=== PATIENT | female | born 1955 | race Caucasian/White ===

== ENCOUNTER 2022-09-04 08:30 | Outpatient (CLI) | payer MEDICARE, BC, SELFPAY ==
[2022-09-04 13:41] VITALS: BMI 44.1
== END 2022-09-04 08:31 | disposition home or self-care (01) ==
LOC: NUTRITION 08:31
PROVIDERS: PCP Family Medicine; Visit Provider Dietitian, Registered
DX: E66.9 Obesity, unspecified (principal); Z71.3 Dietary counseling and surveillance
CPT/HCPCS: 99211

== ENCOUNTER 2022-09-18 08:57 | Outpatient (CLI) | payer MEDICARE, BC, SELFPAY ==
[2022-09-18 10:13] VITALS: BMI 43.7
== END 2022-09-18 08:58 | disposition home or self-care (01) ==
PROVIDERS: PCP Family Medicine; Visit Provider Dietitian, Registered
DX: E66.9 Obesity, unspecified (principal); Z71.3 Dietary counseling and surveillance
CPT/HCPCS: 99211

== ENCOUNTER 2022-10-05 08:26 | Outpatient (CLI) | payer MEDICARE, BC, SELFPAY ==
[2022-10-05 11:08] VITALS: BMI 43.1
== END 2022-10-05 08:27 | disposition home or self-care (01) ==
LOC: NUTRITION 08:28
PROVIDERS: PCP Family Medicine; Visit Provider Dietitian, Registered
DX: E66.9 Obesity, unspecified (principal); Z71.3 Dietary counseling and surveillance
CPT/HCPCS: 99211

== ENCOUNTER 2022-11-13 08:51 | Outpatient (CLI) | payer MEDICARE, BC, SELFPAY ==
[2022-11-13 11:25] VITALS: BMI 42.3
== END 2022-11-13 08:52 | disposition home or self-care (01) ==
LOC: NUTRITION 08:51
PROVIDERS: PCP Family Medicine; Visit Provider Dietitian, Registered
DX: E66.9 Obesity, unspecified (principal); Z71.3 Dietary counseling and surveillance
CPT/HCPCS: 99211

== ENCOUNTER 2022-12-11 09:28 | Outpatient (CLI) | payer MEDICARE, BC, SELFPAY ==
[2022-12-11 10:32] VITALS: BMI 42.6
== END 2022-12-11 09:29 | disposition home or self-care (01) ==
LOC: NUTRITION 09:30
PROVIDERS: PCP Family Medicine; Visit Provider Family Medicine
DX: E66.01 Morbid (severe) obesity due to excess calories (principal); Z71.3 Dietary counseling and surveillance
CPT/HCPCS: 99211

== ENCOUNTER 2023-01-17 09:25 | Outpatient (CLI) | payer MEDICARE, BC, SELFPAY ==
[2023-01-17 10:13] VITALS: BMI 43.4
== END 2023-01-17 09:26 | disposition home or self-care (01) ==
PROVIDERS: PCP Family Medicine; Visit Provider Dietitian, Registered
DX: E66.01 Morbid (severe) obesity due to excess calories (principal); Z71.3 Dietary counseling and surveillance
CPT/HCPCS: 99211

== ENCOUNTER 2023-01-31 09:27 | Outpatient (CLI) | payer MEDICARE, BC, SELFPAY ==
[2023-01-31 11:09] VITALS: BMI 43.0
== END 2023-01-31 09:28 | disposition home or self-care (01) ==
LOC: NUTRITION 09:27
PROVIDERS: PCP Family Medicine; Visit Provider Dietitian, Registered
DX: E66.01 Morbid (severe) obesity due to excess calories (principal); Z71.3 Dietary counseling and surveillance
CPT/HCPCS: 99211

== ENCOUNTER 2023-02-19 09:31 | Outpatient (CLI) | payer MEDICARE, BC, SELFPAY ==
[2023-02-19 10:46] VITALS: BMI 42.8
== END 2023-02-19 09:32 | disposition home or self-care (01) ==
LOC: NUTRITION 09:33
PROVIDERS: PCP Family Medicine; Visit Provider Dietitian, Registered
DX: E66.9 Obesity, unspecified (principal); Z71.3 Dietary counseling and surveillance
CPT/HCPCS: 99211

== ENCOUNTER 2023-03-05 09:26 | Outpatient (CLI) | payer MEDICARE, BC, SELFPAY ==
[2023-03-05 10:07] VITALS: BMI 42.5
== END 2023-03-05 09:27 | disposition home or self-care (01) ==
LOC: NUTRITION 09:26
PROVIDERS: PCP Family Medicine; Visit Provider Dietitian, Registered
DX: E66.01 Morbid (severe) obesity due to excess calories (principal); Z71.3 Dietary counseling and surveillance
CPT/HCPCS: 99211

== ENCOUNTER 2023-04-02 09:23 | Outpatient (CLI) | payer MEDICARE, BC, SELFPAY ==
[2023-04-02 10:19] VITALS: BMI 42.3
== END 2023-04-02 09:24 | disposition home or self-care (01) ==
PROVIDERS: PCP Family Medicine; Visit Provider Dietitian, Registered
DX: Z68.41 Body mass index [BMI] 40.0-44.9, adult (principal); E66.9 Obesity, unspecified
CPT/HCPCS: G0463

== ENCOUNTER 2023-04-16 09:28 | Outpatient (CLI) | payer MEDICARE, BC, SELFPAY ==
[2023-04-16 13:52] VITALS: BMI 42.4
== END 2023-04-16 09:29 | disposition home or self-care (01) ==
LOC: NUTRITION 09:29
PROVIDERS: PCP Family Medicine; Visit Provider Dietitian, Registered
DX: E66.9 Obesity, unspecified (principal); Z71.3 Dietary counseling and surveillance
CPT/HCPCS: G0463

== ENCOUNTER 2023-05-06 09:45 | Outpatient (RCR) | payer MEDICARE, BC, SELFPAY | END 2023-09-03 23:59 | disposition home or self-care (01) | PROVIDERS: PCP Family Medicine; Visit Provider Family Medicine | DX: M25.561 Pain in right knee (principal); M25.551 Pain in right hip; M51.36 Other intervertebral disc degeneration, lumbar region; M79.18 Myalgia, other site; Z74.09 Other reduced mobility; R26.9 Unspecified abnormalities of gait and mobility; R26.81 Unsteadiness on feet; R29.898 Other symptoms and signs involving the musculoskeletal system; Z51.89 Encounter for other specified aftercare | CPT/HCPCS: 97110; 97140; 97162 ==

== ENCOUNTER 2023-05-17 09:28 | Outpatient (CLI) | payer MEDICARE, BC, SELFPAY ==
[2023-05-17 10:23] VITALS: BMI 41.9
== END 2023-05-17 09:29 | disposition home or self-care (01) ==
LOC: NUTRITION 09:28
PROVIDERS: PCP Family Medicine; Visit Provider Dietitian, Registered
DX: E66.9 Obesity, unspecified (principal); Z71.3 Dietary counseling and surveillance
CPT/HCPCS: G0463

== ENCOUNTER 2023-05-30 09:20 | Outpatient (CLI) | payer MEDICARE, BC, SELFPAY ==
[2023-05-30 10:40] VITALS: BMI 42.2
== END 2023-05-30 09:21 | disposition home or self-care (01) ==
LOC: NUTRITION 09:21
PROVIDERS: PCP Family Medicine; Visit Provider Dietitian, Registered
DX: E66.01 Morbid (severe) obesity due to excess calories (principal); Z68.41 Body mass index [BMI] 40.0-44.9, adult
CPT/HCPCS: G0463

== ENCOUNTER 2023-06-13 09:26 | Outpatient (CLI) | payer MEDICARE, BC, SELFPAY ==
[2023-06-13 11:01] VITALS: BMI 42.2
== END 2023-06-13 09:27 | disposition home or self-care (01) ==
LOC: NUTRITION 09:26
PROVIDERS: PCP Family Medicine; Visit Provider Dietitian, Registered
DX: E66.9 Obesity, unspecified (principal); Z71.3 Dietary counseling and surveillance
CPT/HCPCS: G0463

== ENCOUNTER 2023-07-02 09:22 | Outpatient (CLI) | payer MEDICARE, BC, SELFPAY ==
[2023-07-02 13:18] VITALS: BMI 42.4
== END 2023-07-02 09:23 | disposition home or self-care (01) ==
LOC: NUTRITION 09:24
PROVIDERS: PCP Family Medicine; Visit Provider Dietitian, Registered
DX: E66.9 Obesity, unspecified (principal); Z71.3 Dietary counseling and surveillance
CPT/HCPCS: G0463

== ENCOUNTER 2023-07-19 11:12 | Outpatient (CLI) | payer MEDICARE, BC, SELFPAY ==
[2023-07-16 10:50] VITALS: BMI 41.7
== END 2023-07-19 11:13 | disposition home or self-care (01) ==
LOC: NUTRITION 11:13
PROVIDERS: PCP Family Medicine; Visit Provider Dietitian, Registered
DX: E66.9 Obesity, unspecified (principal); Z71.3 Dietary counseling and surveillance
CPT/HCPCS: G0463

== ENCOUNTER 2023-08-13 08:42 | Outpatient (CLI) | payer MEDICARE, BC, SELFPAY ==
[2023-08-13 10:25] VITALS: BMI 41.0
== END 2023-08-13 08:43 | disposition home or self-care (01) ==
LOC: NUTRITION 08:43
PROVIDERS: PCP Family Medicine; Visit Provider Dietitian, Registered
DX: E66.9 Obesity, unspecified (principal); Z71.3 Dietary counseling and surveillance
CPT/HCPCS: G0463

== ENCOUNTER 2023-09-03 09:19 | Outpatient (CLI) | payer MEDICARE, BC, SELFPAY ==
[2023-07-30 14:20] VITALS: BMI 41.5
[2023-09-03 11:06] VITALS: BMI 41.0
== END 2023-09-03 09:20 | disposition home or self-care (01) ==
LOC: NUTRITION 09:20
PROVIDERS: PCP Family Medicine; Visit Provider Dietitian, Registered
DX: E66.01 Morbid (severe) obesity due to excess calories (principal); Z71.3 Dietary counseling and surveillance
CPT/HCPCS: G0463

== ENCOUNTER 2023-09-19 10:17 | Outpatient (CLI) | payer MEDICARE, BC, SELFPAY ==
[2023-09-19 11:15] VITALS: BMI 40.5
== END 2023-09-19 10:18 | disposition home or self-care (01) ==
LOC: NUTRITION 10:18
PROVIDERS: PCP Family Medicine; Visit Provider Dietitian, Registered
DX: E66.9 Obesity, unspecified (principal); Z71.3 Dietary counseling and surveillance
CPT/HCPCS: G0463

== ENCOUNTER 2023-10-08 08:36 | Outpatient (CLI) | payer MEDICARE, BC, SELFPAY ==
[2023-10-08 11:35] VITALS: BMI 40.5
== END 2023-10-08 08:37 | disposition home or self-care (01) ==
LOC: NUTRITION 08:37
PROVIDERS: PCP Family Medicine; Visit Provider Dietitian, Registered
DX: E66.9 Obesity, unspecified (principal); Z71.3 Dietary counseling and surveillance
CPT/HCPCS: G0463

== ENCOUNTER 2023-10-29 09:37 | Outpatient (CLI) | payer MEDICARE, BC, SELFPAY | END 2023-10-29 09:38 | disposition home or self-care (01) | LOC: NUTRITION 09:38 | PROVIDERS: PCP Family Medicine; Visit Provider Dietitian, Registered | DX: E66.01 Morbid (severe) obesity due to excess calories (principal); Z71.3 Dietary counseling and surveillance | CPT/HCPCS: G0463 ==

== ENCOUNTER 2023-11-12 09:48 | Outpatient (CLI) | payer MEDICARE, BC, SELFPAY | END 2023-11-12 09:49 | disposition home or self-care (01) | PROVIDERS: PCP Family Medicine; Visit Provider Dietitian, Registered | DX: E66.01 Morbid (severe) obesity due to excess calories (principal); Z71.3 Dietary counseling and surveillance | CPT/HCPCS: G0463 ==

== ENCOUNTER 2023-11-26 09:54 | Outpatient (CLI) | payer MEDICARE, BC, SELFPAY ==
[2023-11-26 11:50] VITALS: BMI 40.5
== END 2023-11-26 09:55 | disposition home or self-care (01) ==
LOC: NUTRITION 09:55
PROVIDERS: PCP Family Medicine; Visit Provider Dietitian, Registered
DX: E66.9 Obesity, unspecified (principal); Z71.3 Dietary counseling and surveillance
CPT/HCPCS: G0463

== ENCOUNTER 2023-12-24 11:13 | Outpatient (CLI) | payer MEDICARE, BC, SELFPAY ==
[2023-12-24 11:13] VITALS: BMI 41.1
== END 2023-12-24 11:14 | disposition home or self-care (01) ==
LOC: NUTRITION 11:15
PROVIDERS: PCP Family Medicine; Visit Provider Dietitian, Registered
DX: E66.01 Morbid (severe) obesity due to excess calories (principal); Z71.3 Dietary counseling and surveillance
CPT/HCPCS: G0463

== ENCOUNTER 2024-01-21 06:49 | Outpatient (CLI) | payer MEDICARE, BC, SELFPAY ==
[2024-01-21 15:29] VITALS: BMI 40.6
== END 2024-01-21 06:50 | disposition home or self-care (01) ==
LOC: NUTRITION 06:50
PROVIDERS: PCP Family Medicine; Visit Provider Dietitian, Registered
DX: E66.01 Morbid (severe) obesity due to excess calories (principal); Z71.3 Dietary counseling and surveillance
CPT/HCPCS: G0463

== ENCOUNTER 2024-02-04 12:59 | Outpatient (CLI) | payer MEDICARE, BC, SELFPAY ==
[2024-02-04 10:50] VITALS: BMI 41.1
== END 2024-02-04 13:00 | disposition home or self-care (01) ==
LOC: NUTRITION 12:59
PROVIDERS: PCP Family Medicine; Visit Provider Dietitian, Registered
DX: E66.01 Morbid (severe) obesity due to excess calories (principal); Z71.3 Dietary counseling and surveillance
CPT/HCPCS: G0463

== ENCOUNTER 2024-02-18 10:00 | Outpatient (CLI) | payer MEDICARE, BC, SELFPAY ==
[2024-02-18 10:23] VITALS: BMI 40.2
== END 2024-02-18 10:01 | disposition home or self-care (01) ==
PROVIDERS: PCP Family Medicine; Visit Provider Dietitian, Registered
DX: E66.01 Morbid (severe) obesity due to excess calories (principal); Z71.3 Dietary counseling and surveillance
CPT/HCPCS: G0463

== ENCOUNTER 2024-03-03 14:19 | Outpatient (CLI) | payer MEDICARE, BC, SELFPAY ==
[2024-03-03 14:37] VITALS: BMI 40.3
== END 2024-03-03 14:20 | disposition home or self-care (01) ==
LOC: NUTRITION 14:19
PROVIDERS: PCP Family Medicine; Visit Provider Dietitian, Registered
DX: E66.01 Morbid (severe) obesity due to excess calories (principal); Z71.3 Dietary counseling and surveillance
CPT/HCPCS: G0463

== ENCOUNTER 2024-03-20 10:30 | Outpatient (CLI) | payer MEDICARE, BC, SELFPAY ==
[2024-03-20 13:10] VITALS: BMI 40.0
== END 2024-03-20 10:31 | disposition home or self-care (01) ==
LOC: NUTRITION 03-26 13:43
PROVIDERS: PCP Family Medicine; Visit Provider Dietitian, Registered
DX: E66.01 Morbid (severe) obesity due to excess calories (principal); Z71.3 Dietary counseling and surveillance
CPT/HCPCS: G0463